=== PATIENT | female | born 1980 | race Two or more races ===

== ENCOUNTER 2018-08-18 16:42 | Emergency (ER) | payer MEDICAID ==
[2018-08-18] MEDS ORDERED: KETOROLAC 30 MG/1 ML SDV IVP ONE (18:16)
--- NOTE | 2018-08-18 18:16 | EDPHY ---
H & P Stated Complaint: vaginal bleeding started last night, noticed clot today Time Seen by Provider: 08/18/18 16:47 HPI/ROS: CHIEF COMPLAINT: Vaginal bleeding History by patient HISTORY OF PRESENT ILLNESS: 37-year-old woman TAB 2 who has been on the Depo shot but is 2 months late getting her shot presents today with feeling like she might be , and vaginal bleeding and some lower abdominal cramping. She took 2 tests at home and 1 was positive and 1 was negative. Today she has passed some blood clots and also some white mucus. She denies any back pain. She denies any syncope. Her previous pregnancies were uncomplicated. She has no history of ectopic . She has a remote history of Chlamydia. REVIEW OF SYSTEMS: As in HPI, and all other systems reviewed and are negative Source: Patient - Personal History LMP (Females 10-55): Now - Medical/Surgical History Other PMH: a1 - Social History Smoking Status: Current every day smoker - Physical Exam Exam: General Appearance: Alert, nontoxic-appearing. Eyes: Pupils equal and round, extraocular movements intact, no pallor or injection. Mouth: Mucous membranes moist. Pharynx clear Respiratory: Normal, effort, lungs are clear to auscultation. No wheezes, rales or rhonchi. Cardiovascular: Regular rate and rhythm. S1, S2, no murmurs, gallops or rubs appreciated Gastrointestinal: bowel sounds present, Abdomen is soft and nondistended and nontender, no masses Back: No CVA tenderness, no bony tenderness Neurological: Awake, alert and oriented x 3, no pronator drift, normal gait, no pronator drift Skin: Warm and dry, no rashes. Musculoskeletal: No deformities or tenderness. Extremities: full range of motion, no edema Psychiatric: Patient has normal affect, there is no agitation. Constitutional: Initial Vital Signs Temperature (C) 36.6 C 08/18/18 16:49 Heart Rate 101 H 08/18/18 16:49 Respiratory Rate 18 08/18/18 16:49 Blood Pressure 121/72 H 08/18/18 16:49 O2 Sat (%) 96 08/18/18 16:49 O2 Delivery Mode Room Air Allergies/Adverse Reactions: No Known Allergies Allergy (Unverified 08/18/18 16:48) Home Medications: Medication Instructions Recorded NO HOME MEDICATIONS 03/14/11 Medical Decision Making - Diagnostics Imaging Results: Imaging Impressions Obstetrics Ultrasound 08/18/18 16:57 Impression: 1. Suspect blighted ovum. 2. Inability to clearly evaluate the left ovary. Results discussed with Dr. Kuhn at 6:12 PM. Imaging: Discussed imaging studies w/ order desk caller Radiologist ED Course/Re-evaluation: 37-year-old woman presents with vaginal bleeding and . ED urine test confirmed . Therefore quantitative HCG was ordered as was an ultrasound. Per the radiologist ultrasound showed evidence of what looks like a blighted ovum. There is no clear-cut evidence of ectopic , however her left adnexa was poorly visualized, but there is evidence of abnormal intrauterine with blighted ovum. I discussed the case with Dr. Barrientos, on-call for OBGYN. She says the patient can follow up in their office tomorrow. I discussed the results of the ultrasound the patient. Patient states she is blood type A positive. Rh is pending. We will call the patient in for RhoGAM if it turns out she is not a positive. I discussed this with the patient as well.. - Data Points Laboratory Results: 08/18/18 08/18/18 18:39 16:56 Beta HCG, Quant 9941.10 mIU/mL H mIU/mL (0.00-4.83) Patient ABO/Rh Pending Medications Given: Discontinued Medications Ketorolac Tromethamine (Toradol) 15 mg IVP EDNOW ONE Stop: 08/18/18 18:17 Last Admin: 08/18/18 18:20 Dose: 15 mg Point of Care Test Results: CBC CBC Collection Date 08/18/18 CBC Collection Time 19:05 WBC 9.94 RBC 4.46 HGB 13.8 HCT 40.0 PLT 317 Neut # 7.13 Neut 71.8 LYMPH # 2.22 LYMPH 22.3 MCV 89.7 Urine Collection Date 08/18/18 Collection Time 17:05 HCG Results Positive Departure - Departure Disposition: Home, Routine, Self-Care Clinical Impression: Incomplete miscarriage Condition: Good Instructions: Miscarriage (ED) Additional Instructions: You were seen by Dr. Drea Kuhn today. You have had a miscarriage. Please follow-up with OBGYN, Dr. Barrientos or her partners. Return immediately if you develop bleeding greater than 2 pads an hour. Follow up with OBGYN if her bleeding persists for longer than 10-14 days. Return for any worsening or new concerns. Referrals: NONE *PRIMARY CARE P,. [Primary Care Provider] - As per Instructions Mita Barrientos DO [Doctor of Osteopathy] - As per Instructions
[2018-08-18 19:20] VITALS: BP 111/70
== END 2018-08-18 19:16 | disposition home or self-care (01) ==
LOC: CED 16:42
DX: O03.4 Incomplete spontaneous abortion without complication (principal)
CPT/HCPCS: 96374-ER; J1885

== ENCOUNTER 2018-08-27 18:57 | Emergency (ER) | payer MEDICAID ==
[2018-08-27] MEDS ORDERED: NS 1,000 ML IV ONE (19:12)
[2018-08-27] MEDS ORDERED: KETOROLAC 15 MG/1 ML SDV IVP ONE ×2 (19:35→20:16)
--- NOTE | 2018-08-27 20:44 | EDPHY ---
H & P Stated Complaint: Miscarriage on 08/18. Now with foul-smelling brown discharge, fatigue, nausea Time Seen by Provider: 08/27/18 19:04 HPI/ROS: This patient presented on August 18 here with positive home test and pelvic pain, diagnosed with a blighted ovum in her uterus. She is A positive for blood type and had a positive test in the emergency department. She subsequently describes passing tissue and blood but now having foul-smelling vaginal discharge with pain in the pelvic region that is ongoing and worsening over the past 2 days, currently 6/10 intensity. She took Tylenol this morning with partial improvement and notes no other exacerbating factors. ROS: Constitutional: No significant fevers she does have fatigue. HEENT: No URI symptoms Pulmonary: No significant shortness of breath Cardiovascular: No complaints GI: Intermittent mild nausea. No abdominal pain and upper belly. She reports normal bowel movements. : No dysuria hematuria or flank pain. 10 point review of symptoms is performed and otherwise negative with exception of pertinent positives and negatives listed in HPI and ROS Source: Patient Exam Limitations: No limitations - Personal History Current Tetanus Diphtheria and Acellular Pertussis (TDAP): Yes - Medical/Surgical History Other PMH: a1 - Family History Significant Family History: No pertinent family hx - Social History Smoking Status: Current every day smoker Alcohol Use: Occasionally Drug Use: None - Physical Exam Exam: General Appearance: Alert, no distress. Eyes: Pupils equal and round no pallor or injection. ENT, Mouth: Mucous membranes moist. Respiratory: There are no retractions, lungs are clear to auscultation. Cardiovascular: Regular rate and rhythm. Gastrointestinal: Mild to moderate suprapubic tenderness with no guarding or rebound. Neurological: GCS 15 with no focal deficits Skin: Warm and dry, no rashes. Musculoskeletal: Neck is supple nontender. Extremities are symmetrical, full range of motion. Psychiatric: Patient is oriented X 3, there is no agitation. DIFFERENTIAL DIAGNOSIS: After history and physical exam differential diagnosis was considered for retained products of conception, endometritis, UTI, constipation Constitutional: Initial Vital Signs Temperature (C) 36.6 C 08/27/18 19:07 Heart Rate 83 08/27/18 19:07 Respiratory Rate 16 08/27/18 19:07 Blood Pressure 129/78 H 08/27/18 19:07 O2 Sat (%) 95 08/27/18 19:07 O2 Delivery Mode Room Air Allergies/Adverse Reactions: latex Allergy (Verified 08/27/18 19:06) Home Medications: Medication Instructions Recorded Amoxicillin/Clavulanate Pot 875 mg PO BID #14 tab 08/27/18 [Augmentin 875 MG TAB (*)] Medical Decision Making - Diagnostics Imaging Results: Imaging Impressions Obstetrics Ultrasound 08/27/18 19:14 Impression: Since 08/18/2018, there has been interim passage of the previously- suspected blighted ovum, with no residual endometrial canal fluid or gestational sac. However, there is a tiny focus of echogenic tissue with vascularity noted within the endometrium, and trace residual retained products cannot be excluded. The other differential consideration would include a low- grade endometritis given her history of a foul-smelling discharge. Findings were discussed with LAN BABCOCK MD at 20:42, on 08/27/2018. ED Course/Re-evaluation: IV normal saline bolus Toradol IV with relief of pain Review of labs shows a normal overall white count with increased neutrophils on differential no anemia. Normal platelets., normal basic metabolic panel, negative urine , urinalysis without pyuria. Discussed the pelvic sonogram results with Dr. Denton-Radiologist -a very small area of slight hyperemia to the endometrial lining concerning for potential endometritis verses a very small amount of retained products conception. Patient already reports that she has a follow-up appointment within 3 days from her 1st visit on the but does recall the name of the OBGYN. I provided our current on-call OBGYN phone number in addition explaining the need to have a follow-up within the next few days with plan to start Augmentin-1st dose given here tonight to treat endometritis, take ibuprofen Tylenol for pain and return for any significant worsening despite treatment plan. - Data Points Laboratory Results: 08/27/18 19:29 POC Sodium 142 mEq/L mEq/L (135-145) POC Potassium 4.0 mEq/L mEq/L (3.3-5.0) POC Chloride 105.0 mEq/L mEq/L (97-110) POC Total CO2 25 mEq/L mEq/L (22-31) POC BUN 12 mg/dL mg/dL (7-23) POC Creatinine 0.4 mg/dL L mg/dL (0.6-1.0) POC Glucose 111 mg/dL H mg/dL (70-100) POC Calcium 9.2 mg/dL mg/dL (8.5-10.4) Medications Given: Discontinued Medications Amoxicillin/Clavulanate Potassium (Augmentin 875mg) 875 mg PO EDNOW ONE PRN Reason: Protocol Stop: 08/27/18 20:55 Last Admin: 08/27/18 20:58 Dose: 875 mg Sodium Chloride (Ns) 1,000 mls @ 0 mls/hr IV EDNOW ONE; Wide Open PRN Reason: Protocol Stop: 08/27/18 19:13 Last Admin: 08/27/18 19:23 Dose: 1,000 mls Ketorolac Tromethamine (Toradol) 15 mg IVP EDNOW ONE Stop: 08/27/18 19:36 Last Admin: 08/27/18 19:40 Dose: 15 mg Ketorolac Tromethamine (Toradol) 15 mg IVP EDNOW ONE Stop: 08/27/18 20:17 Last Admin: 08/27/18 20:32 Dose: 15 mg Point of Care Test Results: CBC CBC Collection Date 08/27/18 CBC Collection Time 19:20 WBC 8.99 RBC 4.29 HGB 13.5 HCT 39.3 PLT 294 Neut # 6.98 Neut 77.7 LYMPH # 1.6 LYMPH 17.8 MCV 91.6 Chemistry 08/27/18 19:29 POC Sodium 142 mEq/L mEq/L (135-145) POC Potassium 4.0 mEq/L mEq/L (3.3-5.0) POC Chloride 105.0 mEq/L mEq/L (97-110) POC Total CO2 25 mEq/L mEq/L (22-31) POC BUN 12 mg/dL mg/dL (7-23) POC Creatinine 0.4 mg/dL L mg/dL (0.6-1.0) POC Glucose 111 mg/dL H mg/dL (70-100) POC Calcium 9.2 mg/dL mg/dL (8.5-10.4) Urine Collection Date 08/27/18 Collection Time 19:29 HCG Results Negative Urine Dip Collection Date 08/27/18 Collection Time 19:29 Specific [place] (1.002-1.030) 1.030 PH (5.0-7.5) 6.5 Leukocytes (Negative) Negative Nitrites (Negative) Negative Protein (Negative) Negative Glucose (Negative) Negative Ketones (Negative) Negative Urobilnogen (0.2-1.0 EU) 0.2 Bilirubin (Negative) Negative Blood (Negative) 3+ Departure - Departure Disposition: Home, Routine, Self-Care Clinical Impression: Endometritis Condition: Good Instructions: Endometritis (ED) Additional Instructions: Diagnosis: Endometritis Plan: Augmentin antibiotic Eat yogurt or tip probiotic: This so that you do not developed loose stools Ibuprofen Tylenol for pelvic pain Follow up with the OBGYN appointment you currently have in 3 or 4 days. If you cannot find the name of the practitioner that you have an appt. with currently, then call Dr. Hernandez listed below to arrange follow-up appointment for sometime within the next few days for recheck. Return emergency department if you develop unbearable pain despite ibuprofen Tylenol, onset of fevers despite Augmentin or other concerns. Referrals: NONE *PRIMARY CARE P,. [Primary Care Provider] - As per Instructions Aysha Ramos MD [Medical Doctor] - As per Instructions Prescriptions: Amoxicillin/Clavulanate Pot [Augmentin 875 MG TAB (*)] 875 mg PO BID #14 tab
[2018-08-27] MEDS ORDERED: AMOXICILLIN/CLAVULANATE POT 875/125 MG TAB PO ONE (20:54)
[2018-08-27 21:13] VITALS: BP 125/78
== END 2018-08-27 21:12 | disposition home or self-care (01) ==
LOC: CED 18:57
DX: R10.2 Pelvic and perineal pain (principal); N71.9 Inflammatory disease of uterus, unspecified; E86.9 Volume depletion, unspecified
CPT/HCPCS: 80048-ER; 96361-ER; 96374-ER; 96376-ER; J1885

== ENCOUNTER 2018-10-22 17:12 | Emergency (ER) | payer MEDICAID ==
[2018-10-22] MEDS ORDERED: ONDANSETRON 4 MG/2 ML VIAL IVP ONE (17:40)
[2018-10-22] MEDS ORDERED: NS 1,000 ML IV ONE (17:40)
--- NOTE | 2018-10-22 17:43 | EDPHY ---
H & P Stated Complaint: nausea and body aches x 2 weeks , had miscarriage in 08/30 Time Seen by Provider: 10/22/18 17:21 HPI/ROS: CHIEF COMPLAINT: Nausea, dysuria HISTORY OF PRESENT ILLNESS: The patient is a 38-year-old female who comes to the emergency department complaining of 2 weeks of nausea but then an episode of vomiting today. She also complains dysuria and frequency over last several days. No fever. She has had body aches. No diarrhea. She was concerned because she had a miscarriage 2 months ago but never had a follow-up appointment. She has not had a period since that time. She has had a 6 pregnancies with 1 miscarriage and 1 . She denies abdominal pain. She denies chest pain or shortness of breath. Severity: Moderate Modifying factors: None REVIEW OF SYSTEMS: Constitutional: denies: chills, fever, recent illness, recent injury EENTM: denies: blurred vision, double vision, nose congestion Respiratory: denies: cough, shortness of breath Cardiac: denies: chest pain, irregular heart rate, lightheadedness, palpitations Gastrointestinal/Abdominal: See HPI denies: abdominal pain, diarrhea, blood streaked stools Genitourinary: See HPI Musculoskeletal: denies: joint pain, muscle pain Skin: denies: lesions, rash, jaundice, bruising Neurological: denies: headache, numbness, paresthesia, tingling, dizziness, weakness Hematologic/Lymphatic: denies: blood clots, easy bleeding, easy bruising Immunologic/allergic: denies: HIV/AIDS, transplant 10 systems reviewed and negative except as noted EXAM: GENERAL: Well-appearing, well-nourished and in no acute distress. HEAD: Atraumatic, normocephalic. EYES: Pupils equal round and reactive to light, extraocular movements intact, sclera anicteric, conjunctiva are normal. ENT: TMs normal, nares patent, oropharynx clear without exudates. Moist mucous membranes. NECK: Normal range of motion, supple without lymphadenopathy or JVD. LUNGS: Breath sounds clear to auscultation bilaterally and equal. No wheezes rales or rhonchi. HEART: Regular rate and rhythm without murmurs, rubs or gallops. ABDOMEN: Soft, nontender, normoactive bowel sounds. No guarding, no rebound. No masses appreciated. BACK: No CVA tenderness, no spinal tenderness, step-offs or deformities EXTREMITIES: Normal range of motion, no pitting or edema. No clubbing or cyanosis. NEUROLOGICAL: Cranial nerves II through XII grossly intact. Normal speech, normal gait. 5/5 strength, normal movement in all extremities, normal sensation , normal reflexes PSYCH: Normal mood, normal affect. SKIN: Warm, dry, normal turgor, no visible rashes or lesions. Source: Patient Exam Limitations: No limitations - Personal History LMP (Females 10-55): Over 28 Days Ago Current Tetanus Diphtheria and Acellular Pertussis (TDAP): Yes - Medical/Surgical History Hx Asthma: No Hx Chronic Respiratory Disease: No Hx Diabetes: No Hx Cardiac Disease: No Hx Renal Disease: No Hx Cirrhosis: No Hx Alcoholism: No Hx HIV/AIDS: No Hx Splenectomy or Spleen Trauma: No Other PMH: - Family History Significant Family History: No pertinent family hx - Social History Smoking Status: Light smoker Alcohol Use: None Drug Use: None Constitutional: Initial Vital Signs Temperature (C) 37 C 10/22/18 17:21 Heart Rate 83 10/22/18 17:21 Respiratory Rate 16 10/22/18 17:21 Blood Pressure 130/82 H 10/22/18 17:21 O2 Sat (%) 96 10/22/18 17:21 O2 Delivery Mode Room Air Allergies/Adverse Reactions: latex Allergy (Verified 10/22/18 17:20) Home Medications: Medication Instructions Recorded Cephalexin [Keflex] 500 mg PO TID #21 cap 10/22/18 Ondansetron Odt [Zofran Odt 4 mg 4 mg PO Q4 PRN #20 tab 10/22/18 (RX)] Medical Decision Making ED Course/Re-evaluation: 6:40 a.m. patient is feeling much better. Abdominal exam is benign. We discussed negative urinalysis. Culture sent to the lab. She elects to start antibiotics because she is symptomatic with dysuria and frequency and thinks that she probably has another urine infection. Other lab work is unremarkable. She feels much better after Zofran and fluids and is asking to go home. Differential Diagnosis: Partial list of the Differential diagnosis considered include but were not limited to; urinary tract infection, , gastroenteritis and although unlikely based on the history and physical exam, I also considered retained product, torsion, appendicitis, cyst. I discussed these differential diagnoses and the plan with the patient as well as the usual and expected course. The patient understands that the diagnosis is provisional and that in medicine we are not always correct and that further workup is often warranted. Usual and customary warnings were given. All of the patient's questions were answered. The patient was instructed to return to the emergency department should the symptoms at all worsen or return, otherwise to followup with the physician as we discussed. - Data Points Laboratory Results: 10/22/18 10/22/18 17:53 17:45 POC Sodium 142 mEq/L mEq/L (135-145) POC Potassium 4.2 mEq/L mEq/L (3.3-5.0) POC Chloride 104.0 mEq/L mEq/L (97-110) POC Total CO2 28 mEq/L mEq/L (22-31) POC BUN 10 mg/dL mg/dL (7-23) POC Creatinine 0.5 mg/dL L mg/dL (0.6-1.0) POC Glucose 104 mg/dL H mg/dL (70-100) POC Calcium 8.8 mg/dL mg/dL (8.5-10.4) POC Total Bilirubin 0.5 mg/dL mg/dL (0.1-1.4) POC AST 25 IU/L IU/L (14-46) POC ALT 21 IU/L IU/L (9-52) POC Alk Phosphatase 80 IU/L IU/L (38-126) POC Total Protein 7.0 g/dL g/dL (6.3-8.2) POC Albumin 3.5 g/dL g/dL (3.5-5.0) Urine Color YELLOW Urine Appearance CLEAR Urine pH 6.0 (5.0-7.5) Ur Specific [place] 1.019 (1.002-1.030) Urine Protein NEGATIVE (NEGATIVE) Urine Ketones NEGATIVE (NEGATIVE) Urine Blood NEGATIVE (NEGATIVE) Urine Nitrate NEGATIVE (NEGATIVE) Urine Bilirubin NEGATIVE (NEGATIVE) Urine Urobilinogen NEGATIVE EU EU (0.2-1.0) Ur Leukocyte Esterase NEGATIVE (NEGATIVE) Urine RBC 1-3 /hpf /hpf (0-3) Urine WBC 1-3 /hpf /hpf (0-3) Ur Epithelial Cells NONE SEEN /lpf /lpf (NONE-1+) Urine Glucose NEGATIVE (NEGATIVE) Medications Given: Discontinued Medications Cephalexin HCl (Keflex) 500 mg PO EDNOW ONE PRN Reason: Protocol Stop: 10/22/18 18:44 Last Admin: 10/22/18 18:54 Dose: 500 mg Sodium Chloride (Ns) 1,000 mls @ 0 mls/hr IV EDNOW ONE; Wide Open PRN Reason: Protocol Stop: 10/22/18 17:41 Last Admin: 10/22/18 17:55 Dose: 1,000 mls Ondansetron HCl (Zofran) 4 mg IVP EDNOW ONE Stop: 10/22/18 17:41 Last Admin: 10/22/18 17:56 Dose: 4 mg Point of Care Test Results: CBC CBC Collection Date 10/22/18 CBC Collection Time 17:45 WBC 9.70 RBC 4.44 HGB 13.7 HCT 40.4 PLT 296 Neut # 7.23 Neut 74.6 LYMPH # 1.97 LYMPH 20.3 MCV 91.0 Chemistry 10/22/18 17:53 POC Sodium 142 mEq/L mEq/L (135-145) POC Potassium 4.2 mEq/L mEq/L (3.3-5.0) POC Chloride 104.0 mEq/L mEq/L (97-110) POC Total CO2 28 mEq/L mEq/L (22-31) POC BUN 10 mg/dL mg/dL (7-23) POC Creatinine 0.5 mg/dL L mg/dL (0.6-1.0) POC Glucose 104 mg/dL H mg/dL (70-100) POC Calcium 8.8 mg/dL mg/dL (8.5-10.4) POC Total Bilirubin 0.5 mg/dL mg/dL (0.1-1.4) POC AST 25 IU/L IU/L (14-46) POC ALT 21 IU/L IU/L (9-52) POC Alk Phosphatase 80 IU/L IU/L (38-126) POC Total Protein 7.0 g/dL g/dL (6.3-8.2) POC Albumin 3.5 g/dL g/dL (3.5-5.0) Urine Collection Date 10/22/18 Collection Time 17:30 HCG Results Negative Urine Dip Collection Date 10/22/18 Collection Time 17:30 Specific [place] (1.002-1.030) 1.030 PH (5.0-7.5) 6.0 Leukocytes (Negative) Negative Nitrites (Negative) Negative Protein (Negative) Negative Glucose (Negative) Negative Ketones (Negative) Negative Urobilnogen (0.2-1.0 EU) 0.2 Bilirubin (Negative) Negative Blood (Negative) 1+ Departure - Departure Disposition: Home, Routine, Self-Care Clinical Impression: Urinary tract infection Qualifiers: Urinary tract infection type: acute cystitis Hematuria presence: without hematuria Qualified Code(s): N30.00 - Acute cystitis without hematuria Vomiting Qualifiers: Vomiting type: unspecified Vomiting Intractability: non-intractable Nausea presence: without nausea Qualified Code(s): R11.11 - Vomiting without nausea Condition: Fair Instructions: Urinary Tract Infection in Women (DC), Acute Nausea and Vomiting (ED) Referrals: NONE *PRIMARY CARE P,. [Primary Care Provider] - As per Instructions Ramu Leggett DO [Medical Doctor] - As per Instructions Prescriptions: Cephalexin [Keflex] 500 mg PO TID #21 cap Ondansetron Odt [Zofran Odt 4 mg (RX)] 4 mg PO Q4 PRN #20 tab PRN Reason: Nausea & Vomiting
[2018-10-22] MEDS ORDERED: CEPHALEXIN 500 MG CAP PO ONE (18:43)
[2018-10-22 18:59] VITALS: BP 117/70
== END 2018-10-22 18:56 | disposition home or self-care (01) ==
LOC: CED 17:12
DX: N30.00 Acute cystitis without hematuria (principal); R11.11 Vomiting without nausea; E86.9 Volume depletion, unspecified
CPT/HCPCS: 80053-ER; 81025-ER; 85025-QW-ER; 96361-ER; 96374-ER; 99284-ER; J2405